=== PATIENT | female | born 1970 | race Caucasian/White ===

== ENCOUNTER 2017-12-10 09:23 | Outpatient (CLI) | payer OTHER ==
--- NOTE | 2017-12-10 10:51 | RAD ---
LUMBAR SPINE THREE VIEWS INCLUDING LATERAL AND FLEXION AND EXTENSION VIEWS: HISTORY: Lumbar radiculopathy. FINDINGS: Three views of the lumbar spine demonstrate some mild disc space height loss at L4-L5 with anterior o steophytes seen. No evidence of anterolisthesis or retrolisthesis is seen. Vertebral bodies are unr emarkable. IMPRESSION: Mild disk space height loss at L4-L5; otherwise, unremarkable three views lumbar spine. POS: DIDIER
--- NOTE | 2017-12-10 11:16 | MRI ---
MRI LUMBAR SPINE: History: Low back pain. Leg pain and numbness. Technique: Multiplanar, multisequence nonenhanced MRI images were obtained of the lumbar spine. FINDINGS: For the purposes of this dictation the freely mobile vertebral body will be considered to be the L5 v ertebral body. All vertebral bodies are numbered according to this. T12-L1: Unremarkable. L1-2: Disc desiccation is seen. There is mild facet hypertrophy. There is some fluid seen in the L1-2 facet joints. The central canal and neural foramen are patent. L2-3: There is mild facet hypertrophy. The central canal and neural foramen are patent. L3-4: There is mild facet hypertrophy. The central canal and neural foramen are patent. L4-5: Disc desiccation is seen. There is a broad based central disc protrusion mildly but not signifi cantly compressing the thecal sac. There is mild bilateral neural foraminal narrowing seen. L5-S1: Unremarkable. No evidence of disc herniations, spinal stenosis, or neural foraminal narrowing is seen. IMPRESSION: Broad based disc protrusion at L4-5. Disc desiccation is also seen at the L1-2 disc level. POS: DIDIER
== END 2017-12-10 09:24 | disposition home or self-care (01) ==
LOC: TBSIIMAG 09:23
PROVIDERS: ATTEND Nurse Practitioner Family
DX: M51.16 Intervertebral disc disorders with radiculopathy, lumbar region (principal)
CPT/HCPCS: 72100; 72148

== ENCOUNTER 2017-12-29 19:30 | Outpatient (CLI) | payer OTHER | END 2017-12-29 19:31 | disposition home or self-care (01) | LOC: SLEEPLAB 19:30 | PROVIDERS: ATTEND Otolaryngology Plastic Surgery within the Head & Neck | DX: G47.33 Obstructive sleep apnea (adult) (pediatric) (principal); E66.9 Obesity, unspecified; R06.83 Snoring; Z68.37 Body mass index [BMI] 37.0-37.9, adult | CPT/HCPCS: 95810 ==

== ENCOUNTER 2018-02-13 20:30 | Outpatient (CLI) | payer OTHER | END 2018-02-13 20:31 | disposition home or self-care (01) | LOC: SLEEPLAB 20:30 | PROVIDERS: ATTEND Otolaryngology Plastic Surgery within the Head & Neck | DX: G47.33 Obstructive sleep apnea (adult) (pediatric) (principal); R53.83 Other fatigue; R06.83 Snoring; G47.10 Hypersomnia, unspecified; E66.9 Obesity, unspecified; Z68.38 Body mass index [BMI] 38.0-38.9, adult | CPT/HCPCS: 95811 ==

== ENCOUNTER 2018-10-14 15:38 | Outpatient (CLI) | payer OTHER ==
--- NOTE | 2018-10-15 07:10 | MRI ---
MRI OF THE LEFT KNEE WITHOUT CONTRAST: Date: 10/14/18 INDICATION: Medial left knee pain. COMPARISON: None. FINDINGS: There is a predominantly horizontally oriented tear involving anterior horn and body of the medial me niscus. There is a full thickness radial tear involving the posterior root of the medial meniscus. Th ere is partial extrusion of the medial meniscus. There is a partially discoid lateral meniscus withou t evidence of discrete tear. The ACL, PCL, MCL, and LCLC are intact. There are small marginal osteophytes suspected in the major compartments of the left knee. There is a focal full thickness articular cartilage defect involving the medial patellar ridge measuring 3.0 mm . There is moderate diffuse chondral thickening involving the medial patellar facet. There are puncta te foci of articular cartilage thinning involving the medial femoral trochlea. There is diffuse chond ral thinning involving the femorotibial compartments, medial greater than lateral. There is a small B lopez's cyst. IMPRESSION: 1. Mild osteoarthrosis of the left knee. 2. Medial meniscal tear. POS: CLEMENTINA
== END 2018-10-14 15:39 | disposition home or self-care (01) ==
LOC: SCSMRI 15:38
PROVIDERS: ATTEND Orthopaedic Surgery
DX: M23.92 Unspecified internal derangement of left knee (principal); M17.12 Unilateral primary osteoarthritis, left knee; S83.242A Other tear of medial meniscus, current injury, left knee, initial encounter

== ENCOUNTER 2020-02-18 14:42 | Outpatient (CLI) | payer OTHER ==
--- NOTE | 2020-02-18 15:29 | MRI ---
MRI Lumbar Spine Noncontrast: HISTORY: Intervertebral disc disorder with radiculopathy. Patient states low back pain with recent pain to rig ht hip. COMPARISON: 12/10/2017 FINDINGS: The visualized retroperitoneal structures demonstrate a normal appearance. Conus medullaris is normal in morphology and terminates at the L1 level. Normal signal intensity is demonstrated in the bone marrow L1-2: There is a mild disc osteophyte complex without central canal or neural foraminal narrowing. L2-3: There is no disc bulge or disc herniation. Central spinal canal and neural foramina are patent. L3-4: There is no disc bulge or disc herniation. Central spinal canal and neural foramina are patent. L4-5: There is a broad-based disc osteophyte complex with small central disc protrusion overall simil ar to prior exam with slight effacement of the ventral aspect of the thecal sac without significant central canal narrowing. Neural foramina are patent. L5-S1: There is no disc bulge or disc herniation. Central spinal canal and neural foramina are patent . IMPRESSION: Stable mild disc degenerative changes at the L4-5 level and to a lesser extent L1-2 level. There is n o significant central canal or neural foraminal narrowing at any level of the lumbar spine.
== END 2020-02-18 14:43 | disposition home or self-care (01) ==
LOC: TBSIIMAG 14:42
PROVIDERS: ATTEND Specialist
DX: M51.16 Intervertebral disc disorders with radiculopathy, lumbar region (principal); M47.26 Other spondylosis with radiculopathy, lumbar region
CPT/HCPCS: 72148

== ENCOUNTER 2020-07-24 05:30 | Day surgery (SDC) | payer OTHER ==
[2020-07-24] MEDS ORDERED: Fentanyl 100 MCG/2 ML VIAL ONE ×3 (06:06→09:17)
[2020-07-24] MEDS ORDERED: Vancomycin 1.5 GRAM/300 ML BAG ONE (06:07)
[2020-07-24] MEDS ORDERED: Tranexamic Acid 1,000 MG/10 ML VIAL ONE ×2 (06:07→08:57)
[2020-07-24] MEDS ORDERED: Sodium Chloride 0.9% 100 ML ONE (06:07)
[2020-07-24] MEDS ORDERED: Midazolam HCl 2 mg/2 ml Vial ONE (06:25)
[2020-07-24] MEDS ORDERED: Promethazine HCl 25 MG/ML VIAL SLOW IVP PRN (06:34)
[2020-07-24] MEDS ORDERED: HYDROmorphone 2 MG/ML VIAL SLOW IVP PRN (06:34)
[2020-07-24] MEDS ORDERED: Ondansetron HCl/PF 4 MG/2 ML Vial IVP PRN (06:34)
[2020-07-24] MEDS ORDERED: Promethazine HCl 25 MG/ML VIAL IM PRN ×3 (06:34→07:30)
[2020-07-24] MEDS ORDERED: Bupivacaine PF 0.5% 30 ML VIAL ONE (06:50)
[2020-07-24] MEDS ORDERED: traMADol HCl 50 MG TAB PO PRN ×3 (07:14→07:30)
[2020-07-24] MEDS ORDERED: Fentanyl 100 MCG/2 ML VIAL SLOW IVP PRN ×2 (07:14→07:19)
[2020-07-24] MEDS ORDERED: Acetaminophen 325 MG TAB PO PRN (07:14)
[2020-07-24] MEDS ORDERED: Ondansetron PF 4 MG/2 ML Vial IVP PRN ×2 (07:14→07:30)
[2020-07-24] MEDS ORDERED: diphenhydrAMINE 25 MG CAP PO PRN (07:14)
[2020-07-24] MEDS ORDERED: Zolpidem Tartrate 5 MG TAB PO PRN ×2 (07:14→07:30)
[2020-07-24] MEDS ORDERED: HYDROcodone/Acetaminophen 10/325 mg Tablet PO PRN ×2 (07:14)
[2020-07-24] MEDS ORDERED: Tranexamic Acid 1,000 MG in Sodium Chloride 0.9% 100 ML IVPB SCH (07:15)
[2020-07-24] MEDS ORDERED: ALPRAZolam 0.5 MG TAB PO PRN (07:15)
[2020-07-24] MEDS ORDERED: Ropivacaine HCl/PF 250 ML in Premix Bag 1 BAG NERVE BLCK SCH (07:30)
[2020-07-24] MEDS ORDERED: Senokot S 8.6-50 MG TAB PO SCH (09:00)
[2020-07-24] MEDS ORDERED: Ondansetron PF 4 MG/2 ML Vial ONE (09:29)
[2020-07-24] MEDS ORDERED: Dexamethasone 20 MG/5 ML VIAL ONE (09:29)
[2020-07-24] MEDS ORDERED: Lidocaine 1% PF 5 ML VIAL ONE (09:29)
[2020-07-24] MEDS ORDERED: PHENYLEPHRINE-NS 100 MCG/ML 10 ML SYRINGE ONE (09:29)
[2020-07-24] MEDS ORDERED: Ketorolac Tromethamine 30 MG/ML VIAL ONE (09:29)
[2020-07-24] MEDS ORDERED: Ropivacaine 2% HCl/PF (20 MG/10 ML VIAL) ONE (09:29)
[2020-07-24] MEDS ORDERED: Bupivacaine HCl 0.5%/Epinephrine 1:200,000/PF 30 ml Vial ONE (09:29)
[2020-07-24] MEDS ORDERED: PROPOFOL 200 MG/20 ML VIAL ONE (09:29)
[2020-07-24] MEDS ORDERED: Promethazine HCl 25 MG/ML VIAL ONE (09:31)
[2020-07-24] MEDS: Bupropion 150 MG XL TAB PO SCH (10:58)
[2020-07-24] MEDS: Aspirin 81 mg Enteric Coated Tablet PO SCH ×2 (10:58→21:06)
[2020-07-24] MEDS: Hydrochlorothiazide 25 MG TAB PO SCH (11:03)
[2020-07-24] MEDS: Prenatal Vitamin 1 TAB PO SCH (11:03)
[2020-07-24] MEDS: Lisinopril/Hydrochlorothiazide 10 mg/12.5 mg Tablet PO SCH (11:03)
[2020-07-24 11:13] VITALS: BMI 37.5
[2020-07-24] MEDS: Sodium Chloride 0.9% 1,000 ML IV SCH ×2 (14:28→18:02)
[2020-07-24] MEDS: Ketorolac Tromethamine 30 MG/ML VIAL IVP SCH ×2 (14:29→21:05)
[2020-07-24] MEDS: CEFAZOLIN 2 GM in Premix Bag 1 BAG IVPB SCH ×2 (14:29→21:05)
[2020-07-24] MEDS ORDERED: Vancomycin 1.5 GRAM/300 ML BAG 1.5 GM in Premix Bag 1 BAG IVPB SCH (18:00)
[2020-07-25] MEDS: Sodium Chloride 0.9% 1,000 ML IV SCH ×3 (02:09→23:19)
[2020-07-25] MEDS: HYDROcodone/Acetaminophen 10/325 mg Tablet PO PRN ×5 (05:49→22:26)
[2020-07-25] MEDS: Ketorolac Tromethamine 30 MG/ML VIAL IVP SCH ×3 (05:50→21:09)
[2020-07-25 05:59] LABS: Hemoglobin 10.3 g/dL (12.0-16.0); Mean Corpuscular HGB CONC 32.4 g/dL (32.0-36.0); Mean Corpuscular Hemoglobin 27.3 pg (27.0-31.0); Mean Corpuscular Volume 84.3 fL (78.0-98.0); Mean Platelet Volume 9.2 fL (7.4-10.4); Platelet Count 227 thou/uL (130-400); RBC Distribution Width 13.1 % (11.5-14.5); Red Blood Cell (RBC) Count 3.77 mill/uL (4.20-5.40); White Blood Cell (WBC) Count 14.1 thou/uL (4.8-10.8)
[2020-07-25] MEDS: Bupropion 150 MG XL TAB PO SCH (08:53)
[2020-07-25] MEDS: Hydrochlorothiazide 25 MG TAB PO SCH (08:53)
[2020-07-25] MEDS: Aspirin 81 mg Enteric Coated Tablet PO SCH ×2 (08:53→21:10)
[2020-07-25] MEDS: Senokot S 8.6-50 MG TAB PO SCH ×2 (08:53→21:10)
[2020-07-25] MEDS: Prenatal Vitamin 1 TAB PO SCH (08:53)
[2020-07-25] MEDS: Ferrous Gluconate 324 MG TAB PO SCH ×2 (08:54→17:15)
[2020-07-25] MEDS: Lisinopril/Hydrochlorothiazide 10 mg/12.5 mg Tablet PO SCH (08:56)
[2020-07-25] MEDS: Multivitamin W/ Minerals 1 TAB PO SCH (08:56)
[2020-07-26] MEDS: HYDROcodone/Acetaminophen 10/325 mg Tablet PO PRN ×4 (03:08→13:27)
[2020-07-26] MEDS: Ketorolac Tromethamine 30 MG/ML VIAL IVP SCH ×2 (06:11→13:24)
[2020-07-26 06:22] LABS: #Basophils 0.1 thou/uL (0.0-0.2); #Eosinphils 0.1 thou/uL (0.0-0.7); #Lymphocytes 2.3 thou/uL (1.20-3.40); #Monocytes 0.8 thou/uL (0.11-0.59); #Neutrophils 5.8 thou/uL (1.40-6.50); %Basophils 0.7 % (0.0-1.0); %Eosinophils 1.1 % (0.0-10.0); %Lymphocytes 25.3 % (21.0-51.0); %Monocytes 8.4 % (0.0-10.0); %Neutrophils 64.5 % (42.0-75.0); Hemoglobin 9.6 g/dL (12.0-16.0); Mean Corpuscular HGB CONC 31.4 g/dL (32.0-36.0); Mean Corpuscular Hemoglobin 27.6 pg (27.0-31.0); Mean Corpuscular Volume 88.1 fL (78.0-98.0); Mean Platelet Volume 9.3 fL (7.4-10.4); Platelet Count 202 thou/uL (130-400); RBC Distribution Width 13.4 % (11.5-14.5); Red Blood Cell (RBC) Count 3.48 mill/uL (4.20-5.40); White Blood Cell (WBC) Count 8.9 thou/uL (4.8-10.8)
[2020-07-26] MEDS: Aspirin 81 mg Enteric Coated Tablet PO SCH ×2 (08:41→14:31)
[2020-07-26] MEDS: Bupropion 150 MG XL TAB PO SCH ×2 (08:41→14:32)
[2020-07-26] MEDS: Ferrous Gluconate 324 MG TAB PO SCH (08:41)
[2020-07-26] MEDS: Hydrochlorothiazide 25 MG TAB PO SCH ×2 (08:41→14:32)
[2020-07-26] MEDS: Senokot S 8.6-50 MG TAB PO SCH ×2 (08:42→14:31)
[2020-07-26] MEDS ORDERED: Ondansetron ODT 4 MG TAB PO PRN (08:46)
[2020-07-26] MEDS: Multivitamin W/ Minerals 1 TAB PO SCH (08:48)
[2020-07-26] MEDS: Prenatal Vitamin 1 TAB PO SCH (08:48)
[2020-07-26] MEDS: Sodium Chloride 0.9% 1,000 ML IV SCH (09:19)
[2020-07-26] MEDS: Lisinopril/Hydrochlorothiazide 10 mg/12.5 mg Tablet PO SCH ×2 (09:33→14:32)
[2020-07-26 11:42] VITALS: BP 129/66; TEMP 97.7
== END 2020-07-26 15:28 | disposition home or self-care (01) ==
LOC: SDC 05:30 → SURG B 07:14 → SDC 07-26 15:28
PROVIDERS: ATTEND Orthopaedic Surgery
PROC: 0SRC0JZ Replacement of Right Knee Joint with Synthetic Substitute, Open Approach (ICD-10-PCS; principal; 2020-07-24)
PROC: 8E0YXBZ Computer Assisted Procedure of Lower Extremity (ICD-10-PCS; principal; 2020-07-24)
DX: M17.11 Unilateral primary osteoarthritis, right knee (principal); D72.829 Elevated white blood cell count, unspecified; I10 Essential (primary) hypertension; G47.30 Sleep apnea, unspecified; K57.92 Diverticulitis of intestine, part unspecified, without perforation or abscess without bleeding; Z79.899 Other long term (current) drug therapy
CPT/HCPCS: 36415; 85025; 85027; C1713; C1776; J0690; J1100; J1885; J2250; J2405; J2550; J2704; J2795; J3010; J3370; J3490; Q0162; S0020

== ENCOUNTER 2021-06-08 09:15 | Outpatient (CLI) | payer BC, OTHER | END 2021-06-08 09:16 | disposition home or self-care (01) | LOC: BICMAMMO 09:15 | PROVIDERS: ATTEND Family Medicine | DX: Z12.31 Encounter for screening mammogram for malignant neoplasm of breast (principal) | CPT/HCPCS: 77063; 77067 ==

== ENCOUNTER 2021-10-01 09:57 | Outpatient (CLI) | payer BC | END 2021-10-01 09:58 | disposition home or self-care (01) | LOC: BICMAMMO 09:57 | PROVIDERS: ATTEND Family Medicine | DX: N63.10 Unspecified lump in the right breast, unspecified quadrant (principal) | CPT/HCPCS: G0279 ==

== ENCOUNTER 2022-03-12 15:40 | Outpatient (CLI) | payer BC | END 2022-03-12 15:41 | disposition home or self-care (01) | LOC: BICRAD 15:40 | PROVIDERS: ATTEND Family Medicine | DX: M79.672 Pain in left foot (principal) ==

== ENCOUNTER 2023-11-11 12:36 | Outpatient (CLI) | payer BC | END 2023-11-11 12:37 | disposition home or self-care (01) | LOC: BICRAD 12:36 | PROVIDERS: ATTEND Family Medicine | DX: R06.02 Shortness of breath (principal) | CPT/HCPCS: 71046 ==